=== PATIENT | male | born 1940 | race Caucasian/White ===

== ENCOUNTER → 2016-11-27 | Day surgery (SDC) | payer MEDICARE, BC | END | disposition home or self-care (01) | LOC: SDCH 08:26 | DX: Z12.11 Encounter for screening for malignant neoplasm of colon (principal); K63.5 Polyp of colon; K57.30 Diverticulosis of large intestine without perforation or abscess without bleeding; E11.9 Type 2 diabetes mellitus without complications; I10 Essential (primary) hypertension; Z86.010 Personal history of colon polyps; Z96.652 Presence of left artificial knee joint; M19.90 Unspecified osteoarthritis, unspecified site | CPT/HCPCS: J2704 ==